=== PATIENT | female | born 1990 | race Caucasian/White ===

== ENCOUNTER → 2019-06-28 12:47 | Day surgery (SDC) | payer BC ==
[~2019-06-28 12:47] MED LIST: Acetaminophen TAB* 325 MG ONE; Acetaminophen TAB* 325 MG PO PRN; Buffered Lidocaine 1% SYRIN* 1 ML/SYRINGE INTRADERM ONE; Bupivacaine 0.25% SDV PF* 10 ML VIAL INJ ONE; Dexamethasone IV* 4 MG/ML 1 ML (4 MG) ONE; DiMENhydriNATE IV* 50 MG/ML VIAL IV PUSH PRN; DiMENhydriNATE IV* 50 MG/ML VIAL ONE; Famotidine IV* 10 MG/ML 2 ML (20 mg) IV ONE; Famotidine IV* 10 MG/ML 2 ML (20 mg) ONE; Ketorolac INJ* 30 MG/ML 1 ML VIAL ONE; Lactated Ringers 1000 ML Bag* 1,000 ML IV SCH; Lidocaine 1% w EPI 1:100,000* MDV 20 ML VIAL ONE; Lidocaine 2% PF * 5 ML VIAL ONE; Midazolam* 1 MG/ML 5 ML VIAL (5 MG) ONE; Naloxone* 0.4 MG/ML 1 ML VIAL IV PRN; Ondansetron INJ* 2 MG/ML VIAL ONE; Propofol* 10 MG/ML 20 ML BTL ONE; Ropivacaine 0.2% * 2 MG/ML VIAL ONE; ceFAZolin 2 GM in NS PREMIX(*) 2 GM/100 ML BAG IVPB ONE; fentaNYL* 50 MCG/ML 2 ML VIAL (100 MCG VIAL) ONE; oxyCODONE TAB* 5 MG TAB PO PRN
[2019-06-28 17:41] VITALS: BP 113/79
--- NOTE | 2019-06-29 20:29 | OP ---
DATE OF OPERATION: 06/28/19 [facility] DATE OF : [birth year] SURGEON: Moi Saenz MD WATER JET OPERATOR: AMBER Samuels. An business services assistant was needed for the entirety of the case due to the patient's size to help with positioning, retraction, and was utilized throughout all portions of the case. ANESTHESIOLOGIST: Dr. Wright. ANESTHESIA: General. PRE-OP DIAGNOSES: Right leg lateral meniscus tear, iliotibial band syndrome and pain. POST-OP DIAGNOSES: Right leg lateral meniscus tear, iliotibial band syndrome and pain. OPERATIVE PROCEDURE: Right knee arthroscopy with partial lateral meniscectomy with chondroplasty of the lateral plateau and synovectomy of the anterior, medial and lateral scar. COMPLICATIONS: None. ESTIMATED BLOOD LOSS: Minimal. INDICATIONS: Danita Soriano is a 28-year-old female who had a previous surgery by Dr. Blum which was a partial meniscectomy. She did never quite do well. She had some pain laterally and anteriorly based. She tried physical therapy, anti- inflammatories, ice, heat, and injections. She continued to suffer. She elected to proceed with surgical treatment. We reviewed the risks and benefits of surgery. Risks and benefits were discussed at length and included, but are not limited to bleeding; infection; damage to nerves, vessels, surrounding structures; wound nonhealing; persistent pain; need for further surgery; scarring; stiffness; incomplete relief of symptoms; risks of anesthesia. DESCRIPTION OF PROCEDURE: The patient was greeted in the preoperative area by the attending surgeon. Correct extremity was marked and consent was confirmed. The patient was brought back to the operating suite where she was placed in the supine position on the operating table. She then underwent general anesthesia and LMA intubation, after which she was appropriately positioned in the bed. The lateral post was positioned and unsterile tourniquet. The right leg was then prepped and draped in the usual sterile fashion beginning with chlorhexidine soap, scrub and alcohol wipe, and a final prep with ChloraPrep. After appropriate surgical pause indicating side, site, procedure, and administration of antibiotics, the knee was intra-articularly injected with 1% lidocaine with epi. The anterolateral portal was made sharply with an 11- blade. Scope was introduced into the joint and the joint was examined. The ACL and PCL were intact. It was hard to visualize the patellofemoral joint due to the abundant scar as well as medially and laterally. The anteromedial portal was made in an outside-in fashion. Shaver was used to debride back the synovitis that was present. Electrocautery device was used to break apart the abundant thick synovitic scar that was present. Once this was done, I was able to visualize the gutters as well as the patella itself. There were grade 0 to 1 changes in the patellofemoral joint. The medial compartment was examined. There was a small area of medial chondrosis with grade 2 changes, which was debrided back using the shaver. The medial compartment was examined and found to be intact. The medial plateau had grade 0 changes. The knee was then placed in a [id number] position. There was evidence of fraying about the root of the lateral meniscus and evidence of previous partial meniscectomy. The meniscus appeared to be intact, but the unstable fraying was debrided back with a shaver. There was some area of grade 2 changes about the plateau. The lateral femoral condyle had grade 0 to 1 changes. Final images were obtained. The wounds were copiously irrigated with sterile saline. The knee was intra- articularly and superficially injected with 0.2% ropivacaine. Sterile dressings were applied. A Cryo/Cuff was applied. She was awoken from anesthesia and transferred to the PACU in stable condition. POSTOPERATIVE PLAN: She will be weightbearing as tolerated with crutches for 3 to 5 days. Discharged on pain medication. DVT prophylaxis was considered, but deferred due to no previous personal or family history. I will see the patient back in 10 to 14 days. [id number]/[facility] #: [id number] FERNANDO
== END | disposition home or self-care (01) ==
LOC: OR 12:47
PROVIDERS: ATTEND Orthopaedic Surgery
DX: S83.281D Other tear of lateral meniscus, current injury, right knee, subsequent encounter (principal); M76.31 Iliotibial band syndrome, right leg; M65.861 Other synovitis and tenosynovitis, right lower leg; M25.561 Pain in right knee; X58.XXXD Exposure to other specified factors, subsequent encounter; Y92.9 Unspecified place or not applicable; R00.2 Palpitations; F41.9 Anxiety disorder, unspecified
CPT/HCPCS: 81025; A9270-GY; J0690; J1100; J1240; J1885; J2250; J2405; J2704; J2795; J3010; J3490

== ENCOUNTER 2019-09-25 20:23 | Emergency (ER) | payer BC ==
--- OUTSIDE RECORDS SUMMARY | 2019-09-25 20:29 | XMS REPORT | Continuity of Care Document ---
:1990 External Reference #:[id number] Author Name Moi Saenz MD (transmitted by agent of provider Nery Galicia) Address [address] [place] [address] Care Team Providers Name Role Phone Marci Dawn MD - Internal Medicine Care Team Information Breakdown Man Problems Active Problems Provider Date Syncope Viraj Kamara M.D. Onset: 08/07/2015 Iliotibial band friction syndrome Moi Saenz MD Onset: 03/30/2019 Localized, primary osteoarthritis Moi Saenz MD Onset: 03/30/2019 Other tear of lateral meniscus, current Moi Saenz MD Onset: 05/11/2019 injury, right knee, subsequent encounter Current tear of lateral cartilage AND/OR Moi Saenz MD Onset: 07/18/2019 meniscus of knee Social History Type Date Description Comments Sex Unknown ETOH Use Drinks Alcoholic Beverages Rarely Tobacco Use Start: Unknown Patient has never smoked Smoking Status Reviewed: 08/17/19 Patient has never smoked Exercise Type/Frequency Does not exercise Allergies, Adverse Reactions, Alerts Active Allergies Reaction Severity Comments Date Gabapentin 08/07/2015 Amitriptyline 08/07/2015 Baclofen 08/07/2015 Inactive Allergies NKDA 08/14/2013 Medications Active Medications SIG Qnty Indications Ordering Provider Date Topamax take one tablet by Unknown 50mg Tablets mouth qd Norm-Mag daily Unknown Suspension Mexiletine HCL Take 2 Capsules By Unknown 150mg Mouth Two Times Capsules Daily History Medications Ketorolac Tromethamine take 1 by mouth 20tabs Moi Saenz MD 2018 - every 6 hours x 5 08/16/2019 10mg Tablets days. first dose given in or and tolerated well Cephalexin take 1 by mouth 12tabs Moi Saenz MD 06/28/2019 - 500mg Tablets four times a day x 07/17/2019 3 days Immunizations Description No Information Available Vital Signs Date Vital Result Comment 08/17/2019 9:25am Height 65 inches 5'5" Weight 290.00 lb Heart Rate 90 /min BP Systolic Sitting 138 mmHg BP Diastolic Sitting 88 mmHg Respiratory Rate 16 /min Pain Level 0 O2 % BldC Oximetry 99 % BMI (Body Mass Index) 48.3 kg/m2 07/18/2019 1:39pm Height 65 inches 5'5" Weight 291.00 lb Heart Rate 126 /min Respiratory Rate 18 /min Body Temperature 98.2 F Pain Level 0 BMI (Body Mass Index) 48.4 kg/m2 Results Description No Information Available Procedures Date Code Description Status 06/28/2019 50951 Arthroscopy,Knee,Meniscectomy Medial Or Lateral Completed 06/28/2019 82867 Arthroscopy,Knee,Meniscectomy Medial Or Lateral Completed Medical Devices Description No Information Available Encounters Type Date Location Provider Dx Diagnosis Office Visit 05/23/2019 Ananth Saenz MD M25.561 Pain in right 1:00p at [place] knee Office Visit 05/11/2019 Ananth Saenz MD M76.31 Iliotibial band 11:30a at [facility] syndrome, right leg S83.281D Oth tear of lat mensc, current injury, right knee, subs M17.11 Unilateral primary osteoarthritis, right knee Office Visit 03/30/2019 3:15p Ananth Saenz M76.31 Iliotibial band at [facility] syndrome, right leg M17.11 Unilateral primary osteoarthritis, right knee Office Visit 02/23/2019 10:30a Ananth Saenz M25.561 Pain in at [facility] right knee M76.31 Iliotibial band syndrome, right leg Assessments Date Code Description Provider 07/18/2019 S83.281D Other tear of lateral meniscus, current Moi Saenz MD injury, right knee, subsequent encounter 06/28/2019 S83.281A Other tear of lateral meniscus, current Virginia Castillo PA-C injury, right knee, initial encounter 06/28/2019 S83.281A Other tear of lateral meniscus, current Moi Saenz MD injury, right knee, initial encounter 06/15/2019 M76.31 Iliotibial band syndrome, right leg Moi Saenz MD 06/15/2019 M25.561 Pain in right knee Moi Saenz MD 06/15/2019 S83.281D Other tear of lateral meniscus, current Moi Saenz MD injury, right knee, subsequent encounter 05/23/2019 M25.561 Pain in right knee Moi Saenz MD 05/11/2019 M76.31 Iliotibial band syndrome, right leg Moi Saenz MD 05/11/2019 S83.281D Other tear of lateral meniscus, current Moi Saenz MD injury, right knee, subsequent encounter 05/11/2019 M17.11 Unilateral primary osteoarthritis, right Moi Saenz MD knee 03/30/2019 M76.31 Iliotibial band syndrome, right leg Moi Saenz MD 03/30/2019 M17.11 Unilateral primary osteoarthritis, right Moi Saenz MD knee 02/23/2019 M25.561 Pain in right knee Moi Saenz MD 02/23/2019 M76.31 Iliotibial band syndrome, right leg Moi Saenz MD Plan of Treatment No Information Available Functional Status Description No Information Available Mental Status Description No Information Available Referrals Description No Information Available
[2019-09-25 20:33] VITALS: BP 129/77
--- NOTE | 2019-09-25 20:43 | UC ---
Upper Extremity HPI - HPI Summary HPI Summary: R wrist pain after falling and hitting her R wrist on banister. Able to move but w/ moderate pain. - History of Current Complaint Chief Complaint: UCUpperExtremity Stated Complaint: RT WRIST PAIN Time Seen by Provider: 09/25/19 20:33 Hx Obtained From: Patient Hx Last Menstrual Period: 1 week ago Onset/Duration: Sudden Onset Pain Intensity: 5 Pain Scale Used: 0-10 Numeric Character: Aching Aggravating Factor(s): Movement Alleviating Factor(s): Nothing - Allergies/Home Medications Allergies/Adverse Reactions: Allergies Allergy/AdvReac Type Severity Reaction Status Date / Time amitriptyline Allergy Hives/Diff. Verified 09/25/19 20:33 Breathing/I tching baclofen Allergy Hives/Diff. Verified 09/25/19 20:33 Breathing/I tching gabapentin Allergy Hives/Diff. Verified 09/25/19 20:33 Breathing/I tching combination topical cream Allergy Intermediate Rash Uncoded 09/25/19 20:33 DUCK EGGS Allergy Intermediate Vomiting Uncoded 09/25/19 20:33 PMH/Surg Hx/FS Hx/Imm Hx Previously Healthy: Yes Endocrine History: Other - Surgical History Surgical History: Yes Surgery Procedure, Year, and Place: Rt KNEE - MMT - Family History Known Family History: Negative: Other - malignant hyperthermia, anesthesia reaction - Social History Alcohol Use: Rare Substance Use Type: None Smoking Status (MU): Never Smoked Tobacco Review of Systems All Other Systems Reviewed And Are Negative: Yes Skin: Negative: Bruising Musculoskeletal: Positive: Arthralgia - R wrist pain, Edema - r wrist Neurological/Mental Status: Negative: Paresthesia, Numbness Physical Exam Triage Information Reviewed: Yes Appearance: Well-Appearing Vital Signs: Initial Vital Signs Temp 98.1 F 09/25/19 20:29 Pulse 83 09/25/19 20:29 Resp 20 09/25/19 20:29 BP 129/77 09/25/19 20:29 Pulse Ox 99 09/25/19 20:29 Vital Signs Reviewed: Yes Respiratory: Positive: No respiratory distress Musculoskeletal: Positive: ROM Intact - R wrist and hand/fingers, Edema @ - R wrist. Neurological: Positive: Alert, Muscle Tone Normal Skin: Negative: Rashes, Other - bruising Diagnostics - Radiology No standard instances Radiology Interpretation Completed By: Radiologist Summary of Radiographic Findings: no fracture Upper Extremity Course/Dx - Course Course Of Treatment: R wrist swelling after falling and hitting her R wrist on banister. prelim xrays do not show obvious fx but we kept her wrist secure w/ DELROY wrap, ibu for pain. she does not work. she is R handed. - Differential Dx/Diagnosis Differential Diagnosis/HQI/PQRI: Strain, Sprain, Other Provider Diagnosis: Right wrist injury Discharge ED - Sign-Out/Discharge Documenting (check all that apply): Patient Departure All imaging exams completed and their final reports reviewed: No - Discharge Plan Condition: Good Disposition: HOME Patient Education Materials: Wrist Injury (ED) Referrals: Marci Dawn MD [Primary Care Provider] - Additional Instructions: If worsening please see your primary care provider - Billing Disposition and Condition Condition: GOOD Disposition: Home - Attestation Statements Provider Attestation: This patient was not seen by me. I was available for consult. Chart reviewed. SHIVA
--- NOTE | 2019-09-26 07:50 | UC ---
- Progress Note Progress Note: RADIOLOGY REPORT REVIEWED. NO EVIDENCE FOR FRACTURE. NO CHANGE IN MGMT. Course/Dx - Diagnoses Provider Diagnoses: Right wrist injury Discharge ED - Sign-Out/Discharge Documenting (check all that apply): Post-Discharge Follow Up All imaging exams completed and their final reports reviewed: Yes - Discharge Plan Condition: Good Disposition: HOME Patient Education Materials: Wrist Injury (ED) Referrals: Marci Dawn MD [Primary Care Provider] - Additional Instructions: If worsening please see your primary care provider - Billing Disposition and Condition Condition: GOOD Disposition: Home
== END 2019-09-25 21:15 | disposition home or self-care (01) ==
LOC: UCEAST 20:23
DX: S69.91XA Unspecified injury of right wrist, hand and finger(s), initial encounter (principal); W18.09XA Striking against other object with subsequent fall, initial encounter; Y92.9 Unspecified place or not applicable; Z91.018 Allergy to other foods; Z88.8 Allergy status to other drugs, medicaments and biological substances
CPT/HCPCS: 99212; G0463